=== PATIENT | male | born 1970 | race Caucasian/White ===

== ENCOUNTER 2017-02-17 19:19 | Emergency (ER) | payer OTHER ==
[~2017-02-17 19:19] MED LIST: CARBATROL PO; DIL100 PO; LAMICTAL PO
[2017-02-17 21:23] LABS: CALCIUM 9.3 mg/dL (8.5-10.1); CREATININE SERUM 1.5 mg/dL (0.7-1.3)
[2017-02-17 21:28] LABS: BILIRUBIN TOTAL 0.4 mg/dL (0.20-1.00); TOTAL PROTEIN, SERUM 7.7 g/dL (6.4-8.2)
[2017-02-18 00:09] VITALS: BP 135/69
== END 2017-02-18 00:09 | disposition home or self-care (01) ==
LOC: ED 19:19
PROVIDERS: Emergency Medicine
DX: G40.409 Other generalized epilepsy and epileptic syndromes, not intractable, without status epilepticus (principal); T42.0X6A Underdosing of hydantoin derivatives, initial encounter; N17.9 Acute kidney failure, unspecified; Z79.899 Other long term (current) drug therapy; Y92.89 Other specified places as the place of occurrence of the external cause
CPT/HCPCS: J1165; J3490; J7030

== ENCOUNTER 2017-05-21 01:01 | Emergency (ER) | payer OTHER ==
[2017-05-21 02:02] LABS: CALCIUM 9.2 mg/dL (8.5-10.1); CARBON DIOXIDE 24.1 mmol/L (21-32); CREATININE SERUM 1.4 mg/dL (0.7-1.3); POTASSIUM SERUM 3.9 mmol/L (3.5-5.1)
[2017-05-21 03:13] LABS: AMPHETAMINE QUAL UR NONE DETECTED (NEG <=1000)
[2017-05-21 04:09] VITALS: BP 142/82
== END 2017-05-21 04:09 | disposition home or self-care (01) ==
LOC: ED 01:01
PROVIDERS: Emergency Medicine
DX: G40.909 Epilepsy, unspecified, not intractable, without status epilepticus (principal); Z79.899 Other long term (current) drug therapy; Y92.89 Other specified places as the place of occurrence of the external cause
CPT/HCPCS: J1165; J3490

== ENCOUNTER 2017-10-16 17:43 | Emergency (ER) | payer OTHER ==
[~2017-10-16] VITALS: Ht 198.1 cm; Wt 117.9 kg
[2017-10-16 17:54] VITALS: Ht 198.1 cm; Wt 117.9 kg
[2017-10-16 18:45] LABS: BASOPHIL % 0.3 % (0-2); PLATELET COUNT 276 x10^3mcL (130-400)
[2017-10-16 18:48] LABS: CALCIUM 8.6 mg/dL (8.5-10.1); CREATININE SERUM 1.5 mg/dL (0.7-1.3); POTASSIUM SERUM 3.7 mmol/L (3.5-5.1)
[2017-10-16 18:53] LABS: ALBUMIN 3.7 g/dL (3.4-5.0); BILIRUBIN TOTAL 0.2 mg/dL (0.20-1.00); TOTAL PROTEIN, SERUM 7.7 g/dL (6.4-8.2)
[2017-10-16 21:40] VITALS: BP 129/75
== END 2017-10-16 21:13 | disposition home or self-care (01) ==
LOC: ED 17:43
DX: G40.409 Other generalized epilepsy and epileptic syndromes, not intractable, without status epilepticus (principal); Z51.81 Encounter for therapeutic drug level monitoring
CPT/HCPCS: 90715; J1165

== ENCOUNTER 2017-10-16 23:47 | Emergency (ER) | payer OTHER ==
[~2017-10-16] VITALS: Ht 198.1 cm; Wt 117.9 kg
[2017-10-17 00:14] VITALS: Ht 198.1 cm; Wt 117.9 kg
[2017-10-17 01:22] LABS: CALCIUM 8.7 mg/dL (8.5-10.1); MAGNESIUM 2.7 mg/dL (1.8-2.4)
[2017-10-17 01:39] VITALS: BP 140/92
[2017-10-17 06:58] LABS: FREE T4 0.74 ng/dL (0.76-1.46)
[2017-10-17 06:59] LABS: FREE THYROXINE INDEX 1.5 ug/dL (1.4-4.5); T4(THYROXINE) 4.5 ug/dL (4.7-13.3)
[2017-10-17 08:19] LABS: T3 TOTAL 0.77 ng/mL
[2017-10-17 08:22] LABS: CHOLESTEROL/HDL RATIO 5.1; PHOSPHOROUS 2.4 mg/dL (2.5-4.9)
== END 2017-10-17 01:39 | disposition home or self-care (01) ==
LOC: ED 23:47 → DU 10-17 00:23 → ED 10-17 01:39
PROVIDERS: Emergency Medicine; Family Medicine
DX: G40.309 Generalized idiopathic epilepsy and epileptic syndromes, not intractable, without status epilepticus (principal); Z51.81 Encounter for therapeutic drug level monitoring
CPT/HCPCS: 83880; 84439; G0480

== ENCOUNTER 2018-03-08 18:24 | Emergency (ER) | payer OTHER ==
[~2018-03-08] VITALS: Ht 198.1 cm; Wt 124.7 kg
[2018-03-08 18:29] VITALS: Ht 198.1 cm; Wt 124.7 kg
[2018-03-08 20:03] LABS: BASOPHIL % 0.3 % (0-2); PLATELET COUNT 324 x10^3mcL (130-400); RED CELL DISTRIBUTION WIDTH 13.7 % (11.5-14.5)
[2018-03-08 20:08] LABS: CALCIUM 8.9 mg/dL (8.5-10.1); CARBON DIOXIDE 17.1 mmol/L (21-32); CHLORIDE SERUM 102 mmol/L (98-107); CREATININE SERUM 1.5 mg/dL (0.7-1.3); GFR1 54 mL/min; GLUCOSE SERUM 134 mg/dL (74-106); POTASSIUM SERUM 3.6 mmol/L (3.5-5.1); SODIUM SERUM 139 mmol/L (136-145)
[2018-03-08 20:12] LABS: ALBUMIN 4.2 g/dL (3.4-5.0); ALKALINE PHOSPHATASE 134 U/L (46-116); ALT/SGPT 34 U/L (16-63); AST/SGOT 28 U/L (15-37); BILIRUBIN TOTAL 0.22 mg/dL (0.20-1.00)
[2018-03-08 20:13] LABS: TOTAL PROTEIN, SERUM 8.8 g/dL (6.4-8.2)
[2018-03-08 20:25] LABS: AMPHETAMINE QUAL UR NONE DETECTED (NEG <=1000)
[2018-03-08] MEDS ORDERED: DILANTIN100 MG PO (21:01)
[2018-03-08] MEDS ORDERED: TEGRETOL200 MG PO (21:01)
[2018-03-08] MEDS ORDERED: LAMICTAL200 MG PO (21:02)
[2018-03-08 22:02] VITALS: BP 137/90
== END 2018-03-08 22:02 | disposition home or self-care (01) ==
LOC: ED 18:24
PROVIDERS: Emergency Medicine
DX: G40.409 Other generalized epilepsy and epileptic syndromes, not intractable, without status epilepticus (principal)
CPT/HCPCS: 83880; G0480; J2250; J7030

== ENCOUNTER 2019-07-19 18:10 | Inpatient (IN) | payer OTHER ==
[~2019-07-19] VITALS: Ht 198.1 cm; Wt 113.9 kg
[~2019-07-19 18:10] MED LIST changes: +DILANTIN100 MG PO; +LAMICTAL200 MG PO; +TEGRETOL200 MG PO
[2019-07-19 18:19] VITALS: Ht 198.1 cm; Wt 113.9 kg
[2019-07-19 20:07] LABS: BASOPHIL % 0.3 % (0-2); PLATELET COUNT 293 x10^3mcL (130-400); RED CELL DISTRIBUTION WIDTH 13.1 % (11.5-14.5)
[2019-07-19 20:23] LABS: CALCIUM 8.4 mg/dL (8.5-10.1); CARBON DIOXIDE 29.5 mmol/L (21-32); CHLORIDE SERUM 104 mmol/L (98-107); CREATININE SERUM 1.1 mg/dL (0.7-1.3); GFR1 > 60 mL/min; GLUCOSE SERUM 107 mg/dL (74-106); POTASSIUM SERUM 3.9 mmol/L (3.5-5.1); SODIUM SERUM 140 mmol/L (136-145)
[2019-07-19 20:36] LABS: ALBUMIN 3.9 g/dL (3.4-5.0); ALKALINE PHOSPHATASE 122 U/L (46-116); ALT/SGPT 12 U/L (16-63); AST/SGOT 11 U/L (15-37); BILIRUBIN TOTAL 0.3 mg/dL (0.20-1.00); CHOLESTEROL 199 mg/dL (<200); HDL CHOLESTEROL 39 mg/dL (40-60); MAGNESIUM 2.1 mg/dL (1.8-2.4); TOTAL PROTEIN, SERUM 8.1 g/dL (6.4-8.2)
[2019-07-19 23:54] LABS: UA SPECIFIC GRAVITY 1.025 (1.005-1.035); microscopic required? YES; urine erythrocyte NEGATIVE (NEGATIVE)
[2019-07-20 00:01] LABS: AMPHETAMINE QUAL UR NONE DETECTED (See below)
[2019-07-20 03:30] VITALS: BP 140/87
[2019-07-20 06:45] LABS: BASOPHIL % 0.5 % (0-2); PLATELET COUNT 269 x10^3mcL (130-400); RED CELL DISTRIBUTION WIDTH 13.4 % (11.5-14.5)
[2019-07-20 07:17] LABS: T4(THYROXINE) 3.2 ug/dL (4.7-13.3)
[2019-07-20 08:39] LABS: ERYTHROCYTE SED RATE 22 mm/hr (0-15)
[2019-07-20 08:55] VITALS: BP 143/85
[2019-07-20 12:13] VITALS: BP 147/95
[2019-07-20 12:17] VITALS: BP 154/86
[2019-07-20 17:01] VITALS: BP 159/104
[2019-07-20 20:38] VITALS: BP 138/93
[2019-07-21 05:33] VITALS: BP 150/88
[2019-07-21 08:38] VITALS: BP 141/88
[2019-07-21 09:05] LABS: RHEUMATOID ARTHRITIS FACTOR <10.0 IU/mL (0.0-13.9)
[2019-07-21 12:45] VITALS: BP 165/99
[2019-07-21 15:17] VITALS: BP 153/99
[2019-07-21 17:18] VITALS: BP 163/98
[2019-07-21 21:44] VITALS: BP 134/88
[2019-07-22 04:06] LABS: RAPID PLASMA REAGIN Non Reactive (Non Reactive)
[2019-07-22 05:52] VITALS: BP 157/92
[2019-07-22 08:46] VITALS: BP 155/92
[2019-07-22 11:36] VITALS: BP 165/102
[2019-07-22 16:34] VITALS: BP 150/96
[2019-07-22 20:36] VITALS: BP 163/102
[2019-07-22 20:57] VITALS: BP 140/99
[2019-07-23 05:44] VITALS: BP 154/87
[2019-07-23 09:15] VITALS: BP 141/81
[2019-07-23 17:42] VITALS: BP 148/80
[2019-07-23 20:51] VITALS: BP 143/80
[2019-07-24 05:24] VITALS: BP 138/81
[2019-07-24 10:04] VITALS: BP 142/86
[2019-07-24 12:43] VITALS: BP 141/89
[2019-07-24 22:29] VITALS: BP 130/71
[2019-07-24 22:31] VITALS: BP 153/86
[2019-07-25 06:18] VITALS: BP 145/87
[2019-07-25 08:39] VITALS: BP 143/85
[2019-07-25 12:50] VITALS: BP 141/93
[2019-07-25 16:45] VITALS: BP 139/78
[2019-07-25 22:24] VITALS: BP 135/90
[2019-07-26 07:01] VITALS: BP 132/85
[2019-07-26 08:28] VITALS: BP 143/91
[2019-07-26 13:30] VITALS: BP 137/87
[2019-07-26 16:06] VITALS: BP 137/87
== END 2019-07-26 20:30 | disposition home health service (06) | DRG 71 ==
LOC: ED 18:10 → DU 07-20 01:06
PROVIDERS: Emergency Medicine; ADMIT Internal Medicine
DX: G93.41 Metabolic encephalopathy (principal); Q04.8 Other specified congenital malformations of brain; G40.802 Other epilepsy, not intractable, without status epilepticus; R25.1 Tremor, unspecified; H53.2 Diplopia; T42.0X5A Adverse effect of hydantoin derivatives, initial encounter; I10 Essential (primary) hypertension; R27.0 Ataxia, unspecified; Z91.81 History of falling; Z68.29 Body mass index [BMI] 29.0-29.9, adult; Y92.009 Unspecified place in unspecified non-institutional (private) residence as the place of occurrence of the external cause
CPT/HCPCS: 76770; 82962; 86431; 97112-GP; 97116-GP; 97530-GP; G0378; G0480; J2550; J7030; Q0092